=== PATIENT | male | born 1985 | race African-American/Black ===

== ENCOUNTER 2018-10-26 10:24 | Emergency (ER) | payer SELFPAY ==
[~2018-10-26] VITALS: Ht 167.6 cm; Wt 79.4 kg
[2018-10-26 10:34] VITALS: BP 150/87
[2018-10-26] MEDS ORDERED: MUPI22OI2 TP (11:20)
[2018-10-26] MEDS ORDERED: CEPH500C PO (11:20)
--- NOTE | 2018-10-26 11:21 | PHYS DOC ---
Past Medical History Past Medical History: Diabetes-Type I Past Surgical History: No Surgical History Alcohol Use: Occasionally Drug Use: Marijuana Adult General Chief Complaint Chief Complaint: THUMB HPI HPI Patient is a 32 year old AA male who since the emergency room with complaints of right thumb redness, swelling, and pain for the last 3 days. Patient denies any known injury to the thumb. He denies any recent fever, drainage from the site, numbness, or tingling. Patient states he is a type I diabetic and his blood sugars have been slightly elevated. Review of Systems Review of Systems Constitutional: Denies fever or chills [] Musculoskeletal: reports right thumb pain at proximal nailbed Integument: See HPI Neurologic: Denies focal weakness or sensory changes [] Complete systems were reviewed and found to be within normal limits, except as documented in this note. Allergies Allergies Allergies Coded Allergies Type Severity Reaction Last Updated Verified No Known Drug Allergies 10/26/18 No Physical Exam Physical Exam Constitutional: Well developed, well nourished, no acute distress, non-toxic appearance. [] HENT: Normocephalic, atraumatic, bilateral external ears normal, oropharynx moist, no oral exudates, nose normal. [] Eyes: PERRLA, EOMI, conjunctiva normal, no discharge. [] Neck: Normal range of motion, no tenderness, supple, no stridor. [] Cardiovascular:Heart rate regular rhythm, no murmur [] Lungs & Thorax: Bilateral breath sounds clear to auscultation [] Abdomen: Bowel sounds normal, soft, no tenderness, no masses, no pulsatile masses. [] Skin: Warm, dry, no erythema, no rash. [] Back: No tenderness, no CVA tenderness. [] Extremities: No tenderness, no cyanosis, no clubbing, ROM intact, no edema. [] Neurologic: Alert and oriented X 3, normal motor function, normal sensory function, no focal deficits noted. [] Psychologic: Affect normal, judgement normal, mood normal. [] Current Patient Data Vital Signs Vital Signs Date Time Temp Pulse Resp B/P (MAP) Pulse Ox O2 Delivery O2 Flow Rate FiO2 10/26/18 10:34 97.8 103 16 150/87 (108) 99 Room Air 97.8 EKG EKG [] Radiology/Procedures Radiology/Procedures R thumb paronychia was drained using an 11 blade scalpel to lift the cuticle edge. A large amount of purulent drainage was expressed. [] Course & Med Decision Making Course & Med Decision Making Pertinent Labs and Imaging studies reviewed. (See chart for details) dx: Right thumb paronychia Prescriptions written for Keflex and mupirocin. Patient encouraged to soak thumb in Epsom salts soaks 3 times a day and as needed. May take Tylenol or ibuprofen as needed for pain. Keep track of your blood sugars. Follow-up with her primary care doctor in 1-2 days for reevaluation. Return to the ER symptoms worsen. [] Staff Physician Addendum: I was working in the ER during the course of this patient's visit. I was available for consultation as needed, but I was not directly involved in the care of this patient. Dragon Disclaimer Dragon Disclaimer This electronic medical record was generated, in whole or in part, using a voice recognition dictation system. Departure Departure Impression: Primary Impression: Acute paronychia of right thumb Disposition: HOME, SELF-CARE Admitting Physician: Other Condition: STABLE Referrals: NO PCP (PCP) Patient Instructions: Paronychia, [id number] Additional Instructions: Fill prescriptions and use as directed. Soak thumb in Epsom salts soaks 3 times a day and as needed. May take Tylenol or ibuprofen as needed for pain. Keep track of your blood sugars. Follow-up with your primary care doctor in 1-2 days for reevaluation. Return to the ER symptoms worsen. Scripts Mupirocin (MUPIROCIN OINTMENT) 22 Gm Oint...g. 1 JIMMY TP TID for WOUND CARE for 7 Days, #1 TUBE 0 Refills Prov: PETER GASPAR CHUTE WORKER 10/26/18 Cephalexin (CEPHALEXIN) 500 Mg Capsule 1 CAP PO QID, #40 CAP 0 Refills Prov: PETER GASPAR CHUTE WORKER 10/26/18 PETER GASPAR APRN Oct 26, 2018 11:20 JOSE ANGEL BRADY MD Oct 26, 2018 13:59
== END 2018-10-26 11:27 | disposition home or self-care (01) ==
LOC: ER 10:24
DX: L03.011 Cellulitis of right finger (principal); E10.9 Type 1 diabetes mellitus without complications
CPT/HCPCS: 10060; 99283

== ENCOUNTER 2018-11-29 15:14 | Inpatient (IN) | payer SELFPAY ==
[~2018-11-29] VITALS: Ht 170.2 cm; Wt 77.4 kg
[~2018-11-29 15:14] MED LIST: CEPH500C PO; MUPI22OI2 TP
[2018-11-29] MEDS ORDERED: INSULIN REGULAR 100 UNIT/ML 3ML VIAL. IV ONE (16:00)
[2018-11-29] MEDS ORDERED: IV NORMAL SALINE 1000ML BAG 1,000 ML IV ONE ×2 (16:00→17:00)
[2018-11-29 16:10] LABS: BASO # 0.1 x10^3/uL (0.0-0.2); BASO % 1 % (0-3); EOS # 0.1 x10^3/uL (0.0-0.7); EOS % 1 % (0-3); HEMATOCRIT 35.6 % (39.0-53.0); HEMOGLOBIN 11.8 g/dL (13.0-17.5); LYMPH # 1.1 x10^3/uL (1.0-4.8); LYMPH % 14 % (24-48); MEAN CORPUSCULAR HEMOGLOBIN 31 pg (25-35); MEAN CORPUSCULAR HGB CONC 33 g/dL (31-37); MEAN CORPUSCULAR VOLUME 92 fL (79-100); MONO # 0.5 x10^3/uL (0.0-1.1); MONO % 6 % (0-9); NEUT # 6.2 x10^3uL (1.8-7.7); NEUT % 79 % (31-73); PLATELET COUNT 322 x10^3/uL (140-400); RED BLOOD COUNT 3.87 x10^6/uL (4.30-5.70); WHITE BLOOD COUNT 7.9 x10^3/uL (4.0-11.0)
[2018-11-29 16:11] LABS: BILIRUBIN,URINE NEGATIVE (NEG); CLARITY,URINE CLEAR; NITRITE,URINE NEGATIVE (NEG); PH,URINE 6.5; PROTEIN,URINE NEGATIVE (NEG-TRACE); UROBILINOGEN,URINE 0.2 mg/dL (0.2 mg/dL)
[2018-11-29 16:25] LABS: COLOR,URINE STRAW
[2018-11-29 16:28] LABS: BACTERIA,URINE 0 /HPF (0-FEW); WBC,URINE 0 /HPF (0-4)
[2018-11-29 16:33] LABS: ALBUMIN 3.1 g/dL (3.4-5.0); ALBUMIN/GLOBULIN RATIO 0.8 (1.0-1.7); CREATININE 1.4 mg/dL (0.7-1.3); GFR 71.5; POTASSIUM 5.1 mmol/L (3.5-5.1); TOTAL BILIRUBIN 0.9 mg/dL (0.2-1.0); TOTAL PROTEIN 6.9 g/dL (6.4-8.2)
[2018-11-29] MEDS ORDERED: INSULIN REGULAR VIAL 150 UNIT in 0.9 % SODIUM CHLORIDE 150ML 150 ML IV PRN ×2 (17:15→18:15)
[2018-11-29] MEDS ORDERED: DEXTROSE 50% 25 GM / 50ML DISP.SYRIN. IV PRN ×2 (17:15→21:30)
[2018-11-29] MEDS ORDERED: INSULIN,REGULAR 150 UNIT DRIP 150 ML IV ONE (17:30)
[2018-11-29] MEDS ORDERED: IV 1/2 NORMAL SALINE 1,000 ML IV SCH (18:09)
[2018-11-29] MEDS ORDERED: IV NORMAL SALINE 1000ML BAG 1,000 ML IV SCH ×2 (18:09→19:15)
[2018-11-29] MEDS ORDERED: IV DEXTROSE 5 %-0.45 % NACL 1,000 ML IV SCH (18:09)
[2018-11-29] MEDS ORDERED: POTASSIUM CHLORIDE 10MEQ 100 ML IV PRN ×2 (18:15)
--- NOTE | 2018-11-29 18:16 | PHYS DOC ---
Past Medical History Past Medical History: Asthma, Diabetes-Type I Additional Past Medical Histor: gastroparesis Past Surgical History: No Surgical History Alcohol Use: Occasionally Drug Use: Marijuana Adult General Chief Complaint Chief Complaint: OTHER COMPLAINTS HPI HPI Patient is a 32 year old AA male who presents to the emergency room with complaints of being out of his diabetes medications, regular insulin and Lantus , for the last 3 days. Patient states he is unable to afford his medications. He also complains of sharp, tight pain in both of his feet for the last several weeks, he denies any known injury. He denies any redness, swelling, or warmth of his lower extremities. He states that the pain in his right lower extremity is worse than his left lower extremity, he rates the pain as 7 or 8 out of 10. Patient denies any abdominal pain, nausea, vomiting, diarrhea, fever, chest pain , cough, or shortness of breath. He reports that he is a type I diabetic with a history of gastroparesis and asthma. He denies any tobacco use, states that he smokes marijuana about 2 times per week, and he only drinks alcohol on holidays. Review of Systems Review of Systems Constitutional: Denies fever or chills [] Eyes: Denies change in visual acuity, redness, or eye pain [] HENT: Denies nasal congestion or sore throat [] Respiratory: Denies cough or shortness of breath [] Cardiovascular: No additional information not addressed in HPI [] GI: Denies abdominal pain, nausea, vomiting, or diarrhea [] : Denies dysuria or hematuria [] Musculoskeletal: Denies back pain; see history of present illness Integument: Denies rash or skin lesions [] Neurologic: Denies headache, focal weakness or sensory changes [] Endocrine: See history of present illness[] All other systems were reviewed and found to be within normal limits, except as documented in this note. Current Medications Current Medications Current Medications Medications (Trade) Dose Ordered Sig/Alexander Start Time Stop Time Status Last Admin Dose Admin Dextrose (Dextrose 50%-Water Syringe) 12.5 gm PRN Q15MIN PRN 11/29/18 17:15 Insulin Human Regular (HumuLIN R VIAL) 10 unit 1X ONCE 11/29/18 16:00 11/29/18 16:02 DC 11/29/18 16:13 10 UNIT Insulin Human Regular 150 unit/ Sodium Chloride 151.5 ml @ 0 mls/hr CONT PRN 11/29/18 17:15 Sodium Chloride 1,000 ml @ 1,000 mls/hr 1X ONCE 11/29/18 17:00 11/29/18 17:59 DC 11/29/18 17:02 1,000 MLS/HR Allergies Allergies Allergies Coded Allergies Type Severity Reaction Last Updated Verified No Known Drug Allergies 10/26/18 No Physical Exam Physical Exam Constitutional: Well developed, well nourished, no acute distress, non-toxic appearance. [] HENT: Normocephalic, atraumatic, bilateral external ears normal, dry mucous membranes noted, no oral exudates, nose normal. [] Eyes: PERRLA, conjunctiva normal, no discharge. [] Neck: Normal range of motion, no tenderness, supple, no stridor. [] Cardiovascular:Heart rate regular rhythm, no murmur [] Lungs & Thorax: Bilateral breath sounds clear to auscultation [] Skin: Warm, dry, no erythema, no rash; no ulcerations noted of bilateral lower extremities. [] Extremities: No tenderness, no cyanosis, no erythema, no warmth, no clubbing, ROM intact, no edema. [] Neurologic: Alert and oriented X 3, normal motor function, normal sensory function, no focal deficits noted. [] Psychologic: Affect normal, judgement normal, mood normal. [] Current Patient Data Vital Signs Vital Signs Date Time Temp Pulse Resp B/P (MAP) Pulse Ox O2 Delivery O2 Flow Rate FiO2 11/29/18 17:10 132/67 (88) Room Air 11/29/18 16:40 100 97 11/29/18 15:25 97.9 18 97.9 Lab Values Laboratory Tests Test 11/29/18 15:50 White Blood Count 7.9 x10^3/uL (4.0-11.0) Red Blood Count 3.87 x10^6/uL (4.30-5.70) L Hemoglobin 11.8 g/dL (13.0-17.5) L Hematocrit 35.6 % (39.0-53.0) L Mean Corpuscular Volume 92 fL (79-100) Mean Corpuscular Hemoglobin 31 pg (25-35) Mean Corpuscular Hemoglobin Concent 33 g/dL (31-37) Red Cell Distribution Width 14.0 % (11.5-14.5) Platelet Count 322 x10^3/uL (140-400) Neutrophils (%) (Auto) 79 % (31-73) H Lymphocytes (%) (Auto) 14 % (24-48) L Monocytes (%) (Auto) 6 % (0-9) Eosinophils (%) (Auto) 1 % (0-3) Basophils (%) (Auto) 1 % (0-3) Neutrophils # (Auto) 6.2 x10^3uL (1.8-7.7) Lymphocytes # (Auto) 1.1 x10^3/uL (1.0-4.8) Monocytes # (Auto) 0.5 x10^3/uL (0.0-1.1) Eosinophils # (Auto) 0.1 x10^3/uL (0.0-0.7) Basophils # (Auto) 0.1 x10^3/uL (0.0-0.2) Urine Collection Type Void Urine Color Straw Urine Clarity Clear Urine pH 6.5 Urine Specific [place] >=1.030 Urine Protein Negative mg/dL (NEG-TRACE) Urine Glucose (UA) >=1000 mg/dL (NEG) Urine Ketones (Stick) 15 mg/dL (NEG) Urine Blood Negative (NEG) Urine Nitrite Negative (NEG) Urine Bilirubin Negative (NEG) Urine Urobilinogen Dipstick 0.2 mg/dL (0.2 mg/dL) Urine Leukocyte Esterase Negative (NEG) Urine RBC 1-2 /HPF (0-2) Urine WBC 0 /HPF (0-4) Urine Squamous Epithelial Cells None /LPF Urine Bacteria 0 /HPF (0-FEW) Sodium Level 125 mmol/L (136-145) L Potassium Level 5.1 mmol/L (3.5-5.1) Chloride Level 89 mmol/L (98-107) L Carbon Dioxide Level 24 mmol/L (21-32) Anion Gap 12 (6-14) Blood Urea Nitrogen 17 mg/dL (8-26) Creatinine 1.4 mg/dL (0.7-1.3) H Estimated GFR (Cockcroft-Gault) 71.5 BUN/Creatinine Ratio 12 (6-20) Glucose Level 871 mg/dL (70-99) *H Calcium Level 9.0 mg/dL (8.5-10.1) Total Bilirubin 0.9 mg/dL (0.2-1.0) Aspartate Amino Transferase (AST) 18 U/L (15-37) Alanine Aminotransferase (ALT) 22 U/L (16-63) Alkaline Phosphatase 111 U/L (46-116) Total Protein 6.9 g/dL (6.4-8.2) Albumin 3.1 g/dL (3.4-5.0) L Albumin/Globulin Ratio 0.8 (1.0-1.7) L Lipase 251 U/L (73-393) Laboratory Tests 11/29/18 15:50 Laboratory Tests 11/29/18 15:50 EKG EKG [] Radiology/Procedures Radiology/Procedures [] Course & Med Decision Making Course & Med Decision Making Pertinent Labs and Imaging studies reviewed. (See chart for details) dx: Diabetic hyperosmolar nonketotic state; hyperglycemia without ketosis Patient was given 2 L of normal saline and 10 units of regular insulin IV in the department. 45 minutes after insulin and after 1 L of normal saline his blood sugar remained greater than 600. Patient's corrected sodium is 137, chloride 89, creatinine 1.4, K 5.1, blood glucose 871, BC 3.87, hemoglobin 11.8 , hematocrit 35.6, urine is positive for 15 ketones and greater than 1000 glucose. 1715- Dr. Baca was contacted and the decision to admit the patient and initiate an insulin drip was made. Patient to be admitted to the ICU. [] Dragon Disclaimer Dragon Disclaimer This electronic medical record was generated, in whole or in part, using a voice recognition dictation system. Departure Departure Impression: Primary Impression: Diabetic hyperosmolar non-ketotic state Additional Impression: Hyperglycemia without ketosis Disposition: ADMITTED INPATIENT Admitting Physician: Joseph Isaacs Condition: STABLE Referrals: NO PCP (PCP) Problem Qualifiers PETER GASPAR PLASTIC PARTS FABRICATOR Nov 29, 2018 18:15
[2018-11-29 18:34] LABS: CALCIUM 8.8 mg/dL (8.5-10.1); CREATININE 1.5 mg/dL (0.7-1.3); POTASSIUM 3.7 mmol/L (3.5-5.1)
[2018-11-29 18:36] LABS: MAGNESIUM 1.9 mg/dL (1.8-2.4); PHOSPHORUS 2.4 mg/dL (2.6-4.7)
[2018-11-29 18:42] VITALS: BP 133/90
--- NOTE | 2018-11-29 19:00 | NUR ---
Patient arrived to ICU room prior to this RN's arrival--patient already settled by shift change. Patient complaining of cramping pain 05/24, A&Ox4, SR on the monitor, RA. Urinal placed at bedside and blood sugar taken. Patient is tearful at this time. Oriented to unit routines, bed controls, tv controls, call light, diet (NPO), and activity (bedrest). Will continue to monitor.
--- NOTE | 2018-11-29 19:28 | PDOC1 ---
History and Physical Date of Admission Date of Admission DATE: 11/29/18 TIME: 19:26 Identification/Chief Complaint Chief Complaint presented to the emergency room with complaints of being out of his diabetes medications, regular insulin and Lantus, for the last 3 days, unable to afford his medications. He also complains of sharp, tight pain in both of his feet for the last several weeks, he denies any known injury. notes inc thirst He denies any redness, swelling, or warmth of his lower extremities. He states that the pain in his right lower extremity is worse than his left lower extremity, he rates the pain as 7 or 8 out of 10. Patient denies any abdominal pain, nausea, vomiting Past Medical History Past Medical History Past Medical History Past Medical History: Asthma, Diabetes-Type I Additional Past Medical Histor: gastroparesis Past Surgical History: No Surgical History Alcohol Use: Occasionally Drug Use: Marijuana denies alcohol use family hx diabetes, htn Hepatobiliary: No pertinent hx ENT: No pertinent hx Renal/: No pertinent hx Past Surgical History Past Surgical History: No pertinent history Family History Family History: Hypertension Social History Smoke: No ALCOHOL: occassional Drugs: Marijuana Current Problem List Problem List Problems Medical Problems: (1) Diabetic hyperosmolar non-ketotic state Status: Acute (2) Hyperglycemia without ketosis Status: Acute Current Medications Current Medications Current Medications Sodium Chloride 1,000 ml @ 1,000 mls/hr 1X ONCE IV Last administered on at 16:12; Start 11/29/18 at 16:00; Stop 11/29/18 at 16:59; Status DC Insulin Human Regular (HumuLIN R VIAL) 10 unit 1X ONCE IV Last administered on 11/29/18at 16:13; Start 11/29/18 at 16:00; Stop 11/29/18 at 16:02; Status DC Sodium Chloride 1,000 ml @ 1,000 mls/hr 1X ONCE IV Last administered on at 17:02; Start 11/29/18 at 17:00; Stop 11/29/18 at 17:59; Status DC Insulin Human Regular 150 unit/ Sodium Chloride 151.5 ml @ 0 mls/hr CONT PRN IV SEE I/O RECORD; Start 11/29/18 at 17:15 Dextrose (Dextrose 50%-Water Syringe) 12.5 gm PRN Q15MIN PRN IV LOW BLOOD SUGAR ; Start 11/29/18 at 17:15 Insulin Human Regular 150 ml @ 0 mls/hr 1X ONCE IV Last administered on at 17:58; Start 11/29/18 at 17:30; Stop 11/29/18 at 17:31; Status DC Sodium Chloride 1,000 ml @ 250 mls/hr Q4H IV Last administered on 11/29/18at 19 :11; Start 11/29/18 at 18:09 Sodium Chloride 1,000 ml @ 250 mls/hr Q4H IV ; Start 11/29/18 at 18:09; Status Cancel Dextrose/Sodium Chloride 1,000 ml @ 250 mls/hr Q4H IV ; Start 11/29/18 at 18:09 ; Status Cancel Insulin Human Regular 150 unit/ Sodium Chloride 151.5 ml @ 0 mls/hr CONT PRN PRN IV PER PROTOCOL; Start 11/29/18 at 18:15 Potassium Chloride/Water 100 ml @ 100 mls/hr PRN Q1HR PRN IV SEE COMMENTS; Start 11/29/18 at 18:15 Potassium Chloride/Water 100 ml @ 100 mls/hr PRN Q1HR PRN IV SEE COMMENTS; Start 11/29/18 at 18:15 Potassium Chloride/Water 100 ml @ 100 mls/hr PRN Q1HR PRN IV SEE COMMENTS; Start 11/29/18 at 18:15 Sodium Chloride 1,000 ml @ 250 mls/hr Q4H IV ; Start 11/29/18 at 19:15; Stop at 19:15; Status DC Active Scripts Active Mupirocin Ointment (Mupirocin) 22 Gm Oint...g. 1 Lane TP TID 7 Days Cephalexin 500 Mg Capsule 1 Cap PO QID Allergies Allergies: Coded Allergies: No Known Drug Allergies (Unverified , 10/26/18) ROS Review of System Review of Systems Review of Systems Constitutional: Denies fever or chills [] Eyes: Denies change in visual acuity, redness, or eye pain [] HENT: Denies nasal congestion or sore throat [] Respiratory: Denies cough or shortness of breath [] Cardiovascular: No additional information not addressed in HPI [] GI: Denies abdominal pain, nausea, vomiting, or diarrhea [] : Denies dysuria or hematuria [] notes polyuria Musculoskeletal: Denies back pain; see history of present illness Integument: Denies rash or skin lesions [] Neurologic: Denies headache, focal weakness or sensory changes [] Endocrine: See history of present illness[] 14 pt systems were reviewed and found to be within normal limits, except as documented General: YES: Fatigue, Malaise ALLERGY AND IMMUNOLOGY: No: Hives, Insect Bite Sensitivity, Itchy/Watery Eyes, Nasal Congestion, Post Nasal Drip, Seasonal Allergies, Other Hematological and Lymphatic: No: Bleeding Problems, Blood Clots, Blood Transfusions, Brusing, Night Sweats, Pallor, Swollen Lymph Nodes, Other Breast: No New/Changing Breast Lumps, No Nipple changes, No Nipple discharge, No Other Respiratory: No: Cough, Hemoptysis, Orthopnea, Pleuritic Pain, Shortness of breath, SOB with excertion, Sputum Changes, Stridor, Tachypnea, Wheezing, Other Cardiovascular: No Chest Pain, No Palpitations, No Orthopnea, No Paroxysmal Noc. Dyspnea, No Edema, No Lt Headedness, No Other Gastrointestinal: Yes Nausea Genitourinary: YES Frequency, YES Urgency Musculoskeletal: Yes Muscular Weakness Neurological: Yes Numbness/Tingling Skin: Yes Dry Skin Physical Exam Physical Exam Physical Exam Physical Exam Constitutional: Well developed, well nourished, no acute distress, non-toxic appearance. [] HENT: Normocephalic, atraumatic, bilateral external ears normal, dry mucous membranes noted, no oral exudates, nose normal. [] Eyes: PERRLA, conjunctiva normal, no discharge. [] Neck: Normal range of motion, no tenderness, supple, no stridor. [] Cardiovascular:Heart rate regular rhythm, no murmur [] Lungs & Thorax: Bilateral breath sounds clear to auscultation [] Skin: Warm, dry, no erythema, no rash; no ulcerations noted of bilateral lower extremities. [] Extremities: No tenderness, no cyanosis, no erythema, no warmth, no clubbing, ROM intact, no edema. [] Neurologic: Alert and oriented X 3, normal motor function, normal sensory function, no focal deficits noted. [] Psychologic: Affect normal, judgement normal, mood normal. [] General: Alert, Oriented X3, Cooperative, mild distress HEENT: Atraumatic, PERRLA, EOMI Lungs: Clear to auscultation, Normal air movement Heart: S1S2, RRR, no gallops Cardiovascular: S1 Breasts: Not examined Abdomen: Normal bowel sounds, Soft, No tenderness Rectal Exam: not examined PELVIC: Examination not indicated Extremities: No cyanosis, No edema Skin: No breakdown Neuro: Normal speech, Sensation intact, Cranial nerves 3-12 NL Psych/Mental Status: Mental status NL, Mood NL Vitals Vitals Vital Signs Date Time Temp Pulse Resp B/P (MAP) Pulse Ox O2 Delivery O2 Flow Rate FiO2 11/29/18 18:42 98.5 92 20 133/90 (104) 100 Room Air 98.5 Labs Labs Laboratory Tests Test 11/29/18 15:50 11/29/18 18:20 White Blood Count 7.9 x10^3/uL (4.0-11.0) Red Blood Count 3.87 x10^6/uL (4.30-5.70) Hemoglobin 11.8 g/dL (13.0-17.5) Hematocrit 35.6 % (39.0-53.0) Mean Corpuscular Volume 92 fL (79-100) Mean Corpuscular Hemoglobin 31 pg (25-35) Mean Corpuscular Hemoglobin Concent 33 g/dL (31-37) Red Cell Distribution Width 14.0 % (11.5-14.5) Platelet Count 322 x10^3/uL (140-400) Neutrophils (%) (Auto) 79 % (31-73) Lymphocytes (%) (Auto) 14 % (24-48) Monocytes (%) (Auto) 6 % (0-9) Eosinophils (%) (Auto) 1 % (0-3) Basophils (%) (Auto) 1 % (0-3) Neutrophils # (Auto) 6.2 x10^3uL (1.8-7.7) Lymphocytes # (Auto) 1.1 x10^3/uL (1.0-4.8) Monocytes # (Auto) 0.5 x10^3/uL (0.0-1.1) Eosinophils # (Auto) 0.1 x10^3/uL (0.0-0.7) Basophils # (Auto) 0.1 x10^3/uL (0.0-0.2) Urine Collection Type Void Urine Color Straw Urine Clarity Clear Urine pH 6.5 Urine Specific [place] >=1.030 Urine Protein Negative mg/dL (NEG-TRACE) Urine Glucose (UA) >=1000 mg/dL (NEG) Urine Ketones (Stick) 15 mg/dL (NEG) Urine Blood Negative (NEG) Urine Nitrite Negative (NEG) Urine Bilirubin Negative (NEG) Urine Urobilinogen Dipstick 0.2 mg/dL (0.2 mg/dL) Urine Leukocyte Esterase Negative (NEG) Urine RBC 1-2 /HPF (0-2) Urine WBC 0 /HPF (0-4) Urine Squamous Epithelial Cells None /LPF Urine Bacteria 0 /HPF (0-FEW) Sodium Level 125 mmol/L (136-145) 134 mmol/L (136-145) Potassium Level 5.1 mmol/L (3.5-5.1) 3.7 mmol/L (3.5-5.1) Chloride Level 89 mmol/L (98-107) 98 mmol/L (98-107) Carbon Dioxide Level 24 mmol/L (21-32) 26 mmol/L (21-32) Anion Gap 12 (6-14) 10 (6-14) Blood Urea Nitrogen 17 mg/dL (8-26) 16 mg/dL (8-26) Creatinine 1.4 mg/dL (0.7-1.3) 1.5 mg/dL (0.7-1.3) Estimated GFR (Cockcroft-Gault) 71.5 66.0 BUN/Creatinine Ratio 12 (6-20) Glucose Level 871 mg/dL (70-99) 462 mg/dL (70-99) Calcium Level 9.0 mg/dL (8.5-10.1) 8.8 mg/dL (8.5-10.1) Total Bilirubin 0.9 mg/dL (0.2-1.0) Aspartate Amino Transf (AST/SGOT) 18 U/L (15-37) Alanine Aminotransferase (ALT/SGPT) 22 U/L (16-63) Alkaline Phosphatase 111 U/L (46-116) Total Protein 6.9 g/dL (6.4-8.2) Albumin 3.1 g/dL (3.4-5.0) Albumin/Globulin Ratio 0.8 (1.0-1.7) Lipase 251 U/L (73-393) Phosphorus Level 2.4 mg/dL (2.6-4.7) Magnesium Level 1.9 mg/dL (1.8-2.4) Laboratory Tests Test 11/29/18 15:50 11/29/18 18:20 White Blood Count 7.9 x10^3/uL (4.0-11.0) Red Blood Count 3.87 x10^6/uL (4.30-5.70) Hemoglobin 11.8 g/dL (13.0-17.5) Hematocrit 35.6 % (39.0-53.0) Mean Corpuscular Volume 92 fL (79-100) Mean Corpuscular Hemoglobin 31 pg (25-35) Mean Corpuscular Hemoglobin Concent 33 g/dL (31-37) Red Cell Distribution Width 14.0 % (11.5-14.5) Platelet Count 322 x10^3/uL (140-400) Neutrophils (%) (Auto) 79 % (31-73) Lymphocytes (%) (Auto) 14 % (24-48) Monocytes (%) (Auto) 6 % (0-9) Eosinophils (%) (Auto) 1 % (0-3) Basophils (%) (Auto) 1 % (0-3) Neutrophils # (Auto) 6.2 x10^3uL (1.8-7.7) Lymphocytes # (Auto) 1.1 x10^3/uL (1.0-4.8) Monocytes # (Auto) 0.5 x10^3/uL (0.0-1.1) Eosinophils # (Auto) 0.1 x10^3/uL (0.0-0.7) Basophils # (Auto) 0.1 x10^3/uL (0.0-0.2) Urine Collection Type Void Urine Color Straw Urine Clarity Clear Urine pH 6.5 Urine Specific [place] >=1.030 Urine Protein Negative mg/dL (NEG-TRACE) Urine Glucose (UA) >=1000 mg/dL (NEG) Urine Ketones (Stick) 15 mg/dL (NEG) Urine Blood Negative (NEG) Urine Nitrite Negative (NEG) Urine Bilirubin Negative (NEG) Urine Urobilinogen Dipstick 0.2 mg/dL (0.2 mg/dL) Urine Leukocyte Esterase Negative (NEG) Urine RBC 1-2 /HPF (0-2) Urine WBC 0 /HPF (0-4) Urine Squamous Epithelial Cells None /LPF Urine Bacteria 0 /HPF (0-FEW) Sodium Level 125 mmol/L (136-145) 134 mmol/L (136-145) Potassium Level 5.1 mmol/L (3.5-5.1) 3.7 mmol/L (3.5-5.1) Chloride Level 89 mmol/L (98-107) 98 mmol/L (98-107) Carbon Dioxide Level 24 mmol/L (21-32) 26 mmol/L (21-32) Anion Gap 12 (6-14) 10 (6-14) Blood Urea Nitrogen 17 mg/dL (8-26) 16 mg/dL (8-26) Creatinine 1.4 mg/dL (0.7-1.3) 1.5 mg/dL (0.7-1.3) Estimated GFR (Cockcroft-Gault) 71.5 66.0 BUN/Creatinine Ratio 12 (6-20) Glucose Level 871 mg/dL (70-99) 462 mg/dL (70-99) Calcium Level 9.0 mg/dL (8.5-10.1) 8.8 mg/dL (8.5-10.1) Total Bilirubin 0.9 mg/dL (0.2-1.0) Aspartate Amino Transf (AST/SGOT) 18 U/L (15-37) Alanine Aminotransferase (ALT/SGPT) 22 U/L (16-63) Alkaline Phosphatase 111 U/L (46-116) Total Protein 6.9 g/dL (6.4-8.2) Albumin 3.1 g/dL (3.4-5.0) Albumin/Globulin Ratio 0.8 (1.0-1.7) Lipase 251 U/L (73-393) Phosphorus Level 2.4 mg/dL (2.6-4.7) Magnesium Level 1.9 mg/dL (1.8-2.4) VTE Prophylaxis Ordered VTE Prophylaxis Devices: Yes VTE Pharmacological Prophylaxi: Yes Assessment/Plan Assessment/Plan impression 1. hyperosmolar hyperglycemia 2. hx IDDM 3. NONCOMPLIANCE OF MEDS due to cost 4. dehydration, volume depletion 5. pseudohyponatremia plan icu bed insulin drip protocol SS consult am labs home meds when stable iv fluid support dvt prophylaxis 110 min cc time TRENT RAMIREZ MD Nov 29, 2018 19:28
[2018-11-29 20:00] VITALS: BP 139/98
--- NOTE | 2018-11-29 20:00 | NUR ---
Patient states he does not have his medication list with him. He knows he takes Reglan and Insulin, but does not know about doses or frequencies. Patient asked if he has family that can bring up the prescriptions or a medication list and he said his family does not have the transportation to come to the hospital. Will attempt to call pharmacy in AM.
[2018-11-29] MEDS: POTASSIUM CHLORIDE 10MEQ 100 ML IV PRN ×2 (20:26→21:38)
--- NOTE | 2018-11-29 20:28 | NUR ---
Reassessment of IVF not completed by ED RN--marked as "not done" by this RN. Multiple attempts to get 2nd IV access by this RN, credit charge authorizer, and METAL MILLING MACHINE OPERATOR--all unsuccessful.
[2018-11-29 21:00] VITALS: BP 147/70
[2018-11-29] MEDS ORDERED: ENOXAPARIN 40 MG/0.4 ML SYRINGE. SQ SCH (21:00)
[2018-11-29] MEDS ORDERED: fentaNYL PF VIAL 100 MCG/2 ML VIAL IV PRN (21:30)
[2018-11-29] MEDS ORDERED: LORazepam 1 MG TABLET PO PRN (21:30)
--- NOTE | 2018-11-29 21:30 | NUR ---
Patient states that "this is too much" and that he wants to leave AMA. Patient extremely anxious, uncooperative, and agitated at this time. Charge nurse alerted of patient wishes--charge nurse talked with patient and patient agreed to stay if he could have food/drink, pain meds, and anxiety meds. Patient's blood sugar was low, 1/2 amp of D50 given, and is stable now. Dr. Baca notified of patient's wishes--orders received to stop DKA protocol, start NS at 125 cc/hr, give Ativan 1 mg PO Q8 PRN for anxiety, give Fentanyl 50 mcg Q4H IV for pain, start clear liquid diet, moderate sliding scale insulin, and give 10 units of Lantus tonight. Patient is content with these orders and is willing to stay.
[2018-11-29] MEDS ORDERED: INSULIN GLARGINE 300 UNITS/3 ML INSULN.PEN. SQ ONE (21:45)
[2018-11-29 22:00] VITALS: BP 147/70
[2018-11-29] MEDS ORDERED: POTASSIUM CHLORIDE 10 MEQ TABLET.ER. PO ONE (22:00)
[2018-11-29 23:00] VITALS: BP 121/85
[2018-11-30] VITALS (12 sets, daily range): BP systolic 117–154; BP diastolic 65–93
[2018-11-30] MEDS: IV NORMAL SALINE 1000ML BAG 1,000 ML IV SCH ×2 (00:26→08:39)
[2018-11-30] MEDS: INSULIN LISPRO 300 UNITS/3 ML INSULN.PEN. SQ SCH ×3 (00:37→12:27)
[2018-11-30 05:38] LABS: BASO # 0.1 x10^3/uL (0.0-0.2); BASO % 1 % (0-3); EOS # 0.3 x10^3/uL (0.0-0.7); EOS % 4 % (0-3); HEMATOCRIT 37.5 % (39.0-53.0); HEMOGLOBIN 12.6 g/dL (13.0-17.5); LYMPH # 1.9 x10^3/uL (1.0-4.8); LYMPH % 24 % (24-48); MEAN CORPUSCULAR HEMOGLOBIN 30 pg (25-35); MEAN CORPUSCULAR HGB CONC 34 g/dL (31-37); MEAN CORPUSCULAR VOLUME 90 fL (79-100); MONO # 0.7 x10^3/uL (0.0-1.1); MONO % 9 % (0-9); NEUT % 62 % (31-73); PLATELET COUNT 368 x10^3/uL (140-400); RED BLOOD COUNT 4.17 x10^6/uL (4.30-5.70); RED CELL DISTRIBUTION WIDTH 14.2 % (11.5-14.5); WHITE BLOOD COUNT 8.1 x10^3/uL (4.0-11.0)
[2018-11-30 05:44] LABS: CALCIUM 8.5 mg/dL (8.5-10.1); GFR 105.5; POTASSIUM 4.2 mmol/L (3.5-5.1)
[2018-11-30] MEDS ORDERED: INSULIN LISPRO 300 UNITS/3 ML INSULN.PEN. SQ SCH ×2 (08:00→11:30)
[2018-11-30] MEDS ORDERED: INSU100I11 SQ (10:13)
[2018-11-30] MEDS ORDERED: GABA-585 PO (10:13)
[2018-11-30] MEDS ORDERED: INSU100I13 SQ (10:13)
--- NOTE | 2018-11-30 12:45 | PDOC3 ---
Discharge Summary [facility] Date of Admission: Nov 29, 2018 Discharge Date: Nov 30, 2018 Admitting Diagnosis uncontrolled dm1, no DKA or HHS non compliance wo insurance h/o drug use with marijuana pt denies tho ALONSO bl ext pain, neuropathy likely Final Diagnosis Brief Hospital Course Mr. Deng is a 32 old M, dm1 since 18yo, just moved from [place], came for fatigue and high glucose. He said he cannot afford insulin for 3ds, and no PCP, noticed worse fatigue recently, and glucose was high at home. no headache, confusion, sob, or chest pain. c/o bl leg and hands pain sometimes, glucose usually 200s at home. pt admited in ICU with insulin drip, no gap, no DKA, off drip last night, eats ok, glucose ok. pt wants to go home now, ok to dc, told nurse to give him free insulin clinic info. dc time 35min. gabapentin started. HEENT: Atraumatic, PERRLA, EOMI Lungs: Clear to auscultation, Normal air movement Heart: S1S2, RRR, no gallops Cardiovascular: S1 Breasts: Not examined Abdomen: Normal bowel sounds, Soft, No tenderness Rectal Exam: not examined PELVIC: Examination not indicated Extremities: No cyanosis, No edema Skin: No breakdown Neuro: Normal speech, Sensation intact, Cranial nerves 3-12 NL Psych/Mental Status: Mental status NL, Mood NL Disposition home CONDITION AT DISCHARGE: Improved Scheduled Gabapentin (Gabapentin ), 100 MG PO TID Insulin Glargine,Hum.rec.anlog (Lantus Solostar), 30 UNITS SQ QHS Insulin Lispro (Humalog), 10 UNITS SQ TIDAC Mupirocin (Mupirocin Ointment), 1 JIMMY TP TID Discontinued Medications Cephalexin (Cephalexin), 1 CAP PO QID EVIE ARTEAGA MD Nov 30, 2018 12:45
--- NOTE | 2018-11-30 13:21 | NUR ---
Patient d/c from hospital at 1315. Patient's sister came and picked him up using her vehicle. Blood sugar was 173 prior to d/c. Insulin given according to sliding scale. All written prescriptions (insulin, gabapentin) given to patient. d/c paperwork signed. PIV removed. RN explained to patient that he should establish PCP in [place] area since he is new to the area. Information given to patient diabetes clinic with low cost/free supplies.
[2018-11-30] MEDS ORDERED: GABAPENTIN 100 MG CAPSULE. PO SCH (14:00)
[2018-11-30] MEDS ORDERED: INSULIN GLARGINE 300 UNITS/3 ML INSULN.PEN. SQ SCH (21:00)
== END 2018-11-30 13:15 | disposition home or self-care (01) | DRG 638 ==
LOC: ER 15:14 → 1 WEST ICU 17:15
PROVIDERS: ADMIT Family Medicine; ATTEND Family Medicine
DX: E11.00 Type 2 diabetes mellitus with hyperosmolarity without nonketotic hyperglycemic-hyperosmolar coma (NKHHC) (principal); N17.9 Acute kidney failure, unspecified; E86.0 Dehydration; J45.909 Unspecified asthma, uncomplicated; K31.84 Gastroparesis; E11.65 Type 2 diabetes mellitus with hyperglycemia; F12.90 Cannabis use, unspecified, uncomplicated; E11.43 Type 2 diabetes mellitus with diabetic autonomic (poly)neuropathy; Z83.3 Family history of diabetes mellitus; Z82.49 Family history of ischemic heart disease and other diseases of the circulatory system; Z79.4 Long term (current) use of insulin; Z91.19 Patient's noncompliance with other medical treatment and regimen
CPT/HCPCS: 36415; 80048; 80053; 81001; 82962; 83690; 83735; 84100; 85025; 87641; 96361; 96374; J1650; J1815; J3010; J3480; J7030; J7042; 99285-25; G0378

== ENCOUNTER 2019-01-26 16:48 | Emergency (ER) | payer SELFPAY ==
[~2019-01-26] VITALS: Ht 170.2 cm; Wt 77.1 kg
[~2019-01-26 16:48] MED LIST changes: +GABA-585 PO; +INSU100I11 SQ; +INSU100I13 SQ
[2019-01-26] MEDS ORDERED: HALOPERIDOL LACTATE 5 MG/ML VIAL. IVP ONE (17:45)
[2019-01-26] MEDS ORDERED: FAMOTIDINE 20 MG/2 ML VIAL IVP ONE (17:45)
[2019-01-26] MEDS ORDERED: ONDANSETRON PF 4 MG/2 ML VIAL. IV ONE (17:45)
[2019-01-26] MEDS ORDERED: IV NORMAL SALINE 1000ML BAG 1,000 ML IV ONE ×2 (17:45)
[2019-01-26 18:22] LABS: BILIRUBIN,URINE NEGATIVE (NEG); CLARITY,URINE CLEAR; COLOR,URINE YELLOW; NITRITE,URINE NEGATIVE (NEG); PH,URINE 8.5; PROTEIN,URINE 30 mg/dL (NEG-TRACE); UROBILINOGEN,URINE 0.2 mg/dL (0.2 mg/dL)
[2019-01-26 18:28] LABS: BARBITURATES NEG (NEG); BENZODIAZEPINES NEG (NEG); CANNABINOIDS POS (NEG); COCAINE POS (NEG); METHADONE NEG (NEG); OPIATES NEG (NEG); PHENCYCLIDINE NEG (NEG)
[2019-01-26 18:30] LABS: AMPHETAMINE/METHAMPHETAMINE NEG (NEG)
[2019-01-26 18:33] LABS: BACTERIA,URINE 0 /HPF (0-FEW); SQUAMOUS EPITHELIAL CELL,UR OCC /LPF; WBC,URINE RARE /HPF (0-4)
[2019-01-26 18:41] LABS: BASO # 0.1 x10^3/uL (0.0-0.2); BASO % 1 % (0-3); EOS % 0 % (0-3); HEMATOCRIT 36.6 % (39.0-53.0); HEMOGLOBIN 12.4 g/dL (13.0-17.5); LYMPH # 0.8 x10^3/uL (1.0-4.8); LYMPH % 8 % (24-48); MEAN CORPUSCULAR HEMOGLOBIN 30 pg (25-35); MEAN CORPUSCULAR HGB CONC 34 g/dL (31-37); MEAN CORPUSCULAR VOLUME 90 fL (79-100); MONO # 0.4 x10^3/uL (0.0-1.1); MONO % 4 % (0-9); NEUT # 8.7 x10^3uL (1.8-7.7); NEUT % 87 % (31-73); PLATELET COUNT 381 x10^3/uL (140-400); RED BLOOD COUNT 4.08 x10^6/uL (4.30-5.70); RED CELL DISTRIBUTION WIDTH 13.8 % (11.5-14.5)
[2019-01-26 18:53] LABS: CALCIUM 9.6 mg/dL (8.5-10.1); CREATININE 1.4 mg/dL (0.7-1.3); GFR 71.1; POTASSIUM 3.5 mmol/L (3.5-5.1)
[2019-01-26 18:59] LABS: % LYMPHS 4 % (24-48); % MONOS 2 % (0-10); % SEGS 94 % (35-66)
[2019-01-26 19:00] LABS: PLT ESTIMATE ADEQUATE (ADEQUATE)
[2019-01-26] MEDS ORDERED: INSULIN REGULAR 100 UNIT/ML 3ML VIAL. IV ONE (19:00)
[2019-01-26 19:01] LABS: ALBUMIN 3.5 g/dL (3.4-5.0); ALBUMIN/GLOBULIN RATIO 0.9 (1.0-1.7); TOTAL BILIRUBIN 0.8 mg/dL (0.2-1.0); TOTAL PROTEIN 7.5 g/dL (6.4-8.2)
--- NOTE | 2019-01-26 20:37 | PHYS DOC ---
Past Medical History Past Medical History: Anxiety, Asthma, Diabetes-Type I, Hypertension, Other Additional Past Medical Histor: gastroparesis Past Surgical History: No Surgical History Alcohol Use: Occasionally Drug Use: Marijuana Adult General Chief Complaint Chief Complaint: BLOOD SUGAR PROBLEM HPI HPI Patient is a 33 year old male with history of diabetes type 1, hypertension, gastroparesis, anxiety and asthma who presents today complaining of hyperglycemia and chronic gastroparesis. Patient states he has been vomiting since 1 PM. Patient is out of control. He is up and down in the bed screaming out loud stating we are not helping him he needs help yet he will not stay still to be examined or be cared for. We had to leave the room and ask him to put his behavior in control to get him. He eventually stopped acting up and labs were drawn. Patient is in the ED with the significant other who stated patient was discharged from [facility] days ago. She states they recently moved from [place] to [facility] a couple weeks ago and they do not have any primary care doctor or veteran appeals reviewer to follow-up with. Patient admits to using marijuana. Review of Systems Review of Systems Constitutional: Denies fever or chills [] Eyes: Denies change in visual acuity, redness, or eye pain [] HENT: Denies nasal congestion or sore throat [] Respiratory: Denies cough or shortness of breath [] Cardiovascular: No additional information not addressed in HPI [] GI: Denies abdominal pain, nausea, vomiting, bloody stools or diarrhea [] : Denies dysuria or hematuria [] Musculoskeletal: Denies back pain or joint pain [] Integument: Denies rash or skin lesions [] Neurologic: Denies headache, focal weakness or sensory changes [] Endocrine: Reports hyperglycemia Psych:anxious, crying out loud. All other systems were reviewed and found to be within normal limits, except as documented in this note. Current Medications Current Medications Current Medications Medications (Trade) Dose Ordered Sig/Alexander Start Time Stop Time Status Last Admin Dose Admin Famotidine (Pepcid Vial) 20 mg 1X ONCE 01/26/19 17:45 01/26/19 17:49 DC 01/26/19 17:58 20 MG Haloperidol Lactate (Haldol Inj) 5 mg 1X ONCE 01/26/19 17:45 01/26/19 17:49 DC 01/26/19 17:58 5 MG Insulin Human Regular (HumuLIN R VIAL) 8 unit 1X ONCE 01/26/19 19:00 01/26/19 19:01 DC 01/26/19 19:23 8 UNIT Ondansetron HCl (Zofran) 4 mg 1X ONCE 01/26/19 17:45 01/26/19 17:49 DC 01/26/19 17:58 4 MG Sodium Chloride 1,000 ml @ 1,000 mls/hr 1X ONCE 01/26/19 17:45 01/26/19 18:44 DC 01/26/19 17:58 1,000 MLS/HR Allergies Allergies Allergies Coded Allergies Type Severity Reaction Last Updated Verified No Known Drug Allergies 10/26/18 No Physical Exam Physical Exam Constitutional: Well developed, well nourished, no acute distress, non-toxic appearance. [] HENT: Normocephalic, atraumatic, bilateral external ears normal, oropharynx moist, no oral exudates, nose normal. [] Eyes: PERRLA, EOMI, conjunctiva normal, no discharge. [] Neck: Normal range of motion, no tenderness, supple, no stridor. [] Cardiovascular:Heart rate regular rhythm, no murmur [] Lungs & Thorax: Bilateral breath sounds clear to auscultation [] Abdomen: Old healed surgical incision noted midline abdomen. Bowel sounds normal , soft, no tenderness, no masses, no pulsatile masses. [] Skin: Warm, dry, no erythema, no rash. [] Back: No tenderness, no CVA tenderness. [] Extremities: No tenderness, no cyanosis, no clubbing, ROM intact, no edema. [] Neurologic: Alert and oriented X 3, normal motor function, normal sensory function, no focal deficits noted. [] Psychologic: Very anxious, crying out loud Current Patient Data Vital Signs Vital Signs Date Time Temp Pulse Resp B/P (MAP) Pulse Ox O2 Delivery O2 Flow Rate FiO2 01/26/19 19:52 98 141/67 (91) 99 Room Air 01/26/19 19:22 18 01/26/19 16:55 98.3 98.3 Lab Values Laboratory Tests Test 01/26/19 17:25 01/26/19 18:25 01/26/19 20:01 Urine Collection Type Void Urine Color Yellow Urine Clarity Clear Urine pH 8.5 Urine Specific [place] 1.020 Urine Protein 30 mg/dL (NEG-TRACE) Urine Glucose (UA) >=1000 mg/dL (NEG) Urine Ketones (Stick) 15 mg/dL (NEG) Urine Blood Small (NEG) Urine Nitrite Negative (NEG) Urine Bilirubin Negative (NEG) Urine Urobilinogen Dipstick 0.2 mg/dL (0.2 mg/dL) Urine Leukocyte Esterase Negative (NEG) Urine RBC 6-10 /HPF (0-2) Urine WBC Rare /HPF (0-4) Urine Squamous Epithelial Cells Occ /LPF Urine Bacteria 0 /HPF (0-FEW) Glucose (Fingerstick) 507 mg/dL (70-99) *H 160 mg/dL (70-99) H Urine Opiates Screen Neg (NEG) Urine Methadone Screen Neg (NEG) Urine Barbiturates Neg (NEG) Urine Phencyclidine Screen Neg (NEG) Urine Amphetamine/Methamphetamine Neg (NEG) Urine Benzodiazepines Screen Neg (NEG) Urine Cocaine Screen Pos (NEG) Urine Cannabinoids Screen Pos (NEG) Urine Ethyl Alcohol Neg (NEG) White Blood Count 10.0 x10^3/uL (4.0-11.0) Red Blood Count 4.08 x10^6/uL (4.30-5.70) L Hemoglobin 12.4 g/dL (13.0-17.5) L Hematocrit 36.6 % (39.0-53.0) L Mean Corpuscular Volume 90 fL (79-100) Mean Corpuscular Hemoglobin 30 pg (25-35) Mean Corpuscular Hemoglobin Concent 34 g/dL (31-37) Red Cell Distribution Width 13.8 % (11.5-14.5) Platelet Count 381 x10^3/uL (140-400) Neutrophils (%) (Auto) 87 % (31-73) H Lymphocytes (%) (Auto) 8 % (24-48) L Monocytes (%) (Auto) 4 % (0-9) Eosinophils (%) (Auto) 0 % (0-3) Basophils (%) (Auto) 1 % (0-3) Neutrophils # (Auto) 8.7 x10^3uL (1.8-7.7) H Lymphocytes # (Auto) 0.8 x10^3/uL (1.0-4.8) L Monocytes # (Auto) 0.4 x10^3/uL (0.0-1.1) Eosinophils # (Auto) 0.0 x10^3/uL (0.0-0.7) Basophils # (Auto) 0.1 x10^3/uL (0.0-0.2) Segmented Neutrophils % 94 % (35-66) H Lymphocytes % 4 % (24-48) L Monocytes % 2 % (0-10) Platelet Estimate Adequate (ADEQUATE) Sodium Level 140 mmol/L (136-145) Potassium Level 3.5 mmol/L (3.5-5.1) Chloride Level 99 mmol/L (98-107) Carbon Dioxide Level 28 mmol/L (21-32) Anion Gap 13 (6-14) Blood Urea Nitrogen 23 mg/dL (8-26) Creatinine 1.4 mg/dL (0.7-1.3) H Estimated GFR (Cockcroft-Gault) 71.1 BUN/Creatinine Ratio 16 (6-20) Glucose Level 438 mg/dL (70-99) H Calcium Level 9.6 mg/dL (8.5-10.1) Magnesium Level 2.0 mg/dL (1.8-2.4) Total Bilirubin 0.8 mg/dL (0.2-1.0) Aspartate Amino Transferase (AST) 20 U/L (15-37) Alanine Aminotransferase (ALT) 24 U/L (16-63) Alkaline Phosphatase 112 U/L (46-116) Creatine Kinase 161 U/L (39-308) Creatine Kinase MB (Mass) 2.0 ng/mL (0.0-3.6) Creatine Kinase MB Relative Index 1.2 % (0-4) Troponin I Quantitative < 0.017 ng/mL (0.000-0.055) GN-Uun-A-Type Natriuretic Peptide 24 pg/mL (0-124) Total Protein 7.5 g/dL (6.4-8.2) Albumin 3.5 g/dL (3.4-5.0) Albumin/Globulin Ratio 0.9 (1.0-1.7) L Lipase 151 U/L (73-393) Ethyl Alcohol Level < 10 mg/dL (0-10) Laboratory Tests 01/26/19 18:25 Laboratory Tests 01/26/19 18:25 EKG EKG [] Radiology/Procedures Radiology/Procedures [] Course & Med Decision Making Course & Med Decision Making Pertinent Labs and Imaging studies reviewed. (See chart for details) This is a 33-year-old male patient with history of diabetes type 1 presenting to the ED today with hyperglycemia and gastroparesis, on arrival to the ED, patient was beyond control screaming and crying out loud, not cooperating to be cared for. After major negotiations and being left alone he was able to calm down and we started giving him the care he needs. SEE HPI CBC with no acute findings, CMP with glucose of 438, creatinine 1.4, BUN is normal. Urine analysis is noted for 15 ketones. Patient was given 2 L of IV fluid, 8 units of insulin, blood glucose 163. Patient was also given famotidine, Zofran and Haldol. He completely come down. Patient was offered admission he is requesting to go home. He states he feels better and he states he left his insulin at home and was at work when his symptoms began. Prescription for Reglan as well as Zofrn provided. Doctor's list provided for follow-up as an outpatient. Dragon Disclaimer Dragon Disclaimer This electronic medical record was generated, in whole or in part, using a voice recognition dictation system. Departure Departure Impression: Primary Impression: Anxiety Additional Impressions: Diabetes mellitus with hyperglycemia Gastroparesis Marijuana use Disposition: HOME, SELF-CARE Condition: STABLE Referrals: NO PCP (PCP) follow up with your doctor next week Patient Instructions: Gastroparesis, Gestational Diabetes Mellitus Additional Instructions: You were evaluated in the emergency room for diabetes with gastroparesis. Please continue using her insulin as prescribed previously. Establish care with one of the primary care doctor is provided. Try and follow-up in the course of next week. Push fluids. Scripts Metoclopramide Hcl (REGLAN) 10 Mg Tablet 1 TAB PO TID, #30 TAB Prov: CELINA LINDO APRN 01/26/19 Ondansetron (ONDANSETRON ODT) 4 Mg Tab.rapdis 1 TAB PO PRN Q6-8HRS, #16 TAB Prov: CELINA LINDO APRN 01/26/19 Problem Qualifiers Additional Impressions: Diabetes mellitus with hyperglycemia Diabetes mellitus type: type 1 Qualified Codes: E10.65 - Type 1 diabetes mellitus with hyperglycemia CELINA LINDO APRN Jan 26, 2019 20:37
[2019-01-26 20:52] VITALS: BP 131/69
[2019-01-26] MEDS ORDERED: ONDA4TAB12 PO (20:52)
[2019-01-26] MEDS ORDERED: METO10TA81 PO (20:52)
--- NOTE | 2019-01-27 06:49 | EKG ---
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
== END 2019-01-26 21:00 | disposition home or self-care (01) ==
LOC: ER 16:48
DX: E10.65 Type 1 diabetes mellitus with hyperglycemia (principal); F41.9 Anxiety disorder, unspecified; E10.43 Type 1 diabetes mellitus with diabetic autonomic (poly)neuropathy; K31.84 Gastroparesis; J45.909 Unspecified asthma, uncomplicated; I10 Essential (primary) hypertension; F12.20 Cannabis dependence, uncomplicated
CPT/HCPCS: 36415; 80053; 80307; 81001; 82553; 82962; 83690; 83735; 83880; 84484; 85007; 85025; 93005; 96361; 96374; 96375; 99284; G0480; J1630; J1815; J2405; J3490; J7030

== ENCOUNTER 2019-04-05 01:53 | Emergency (ER) | payer SELFPAY ==
[~2019-04-05] VITALS: Ht 167.6 cm; Wt 81.6 kg
[~2019-04-05 01:53] MED LIST changes: +METO10TA81 PO; +ONDA4TAB12 PO
[2019-04-05 02:03] VITALS: BP 160/105
[2019-04-05] MEDS ORDERED: AMOX1TAB61 PO (02:42)
[2019-04-05] MEDS ORDERED: HYDR-3164 PO (02:42)
[2019-04-05] MEDS ORDERED: KETOROLAC 30 MG/ML VIAL. IM ONE (02:45)
--- NOTE | 2019-04-05 02:49 | PHYS DOC ---
Past Medical History Past Medical History: Anxiety, Asthma, Diabetes-Type I, Hypertension, Other Additional Past Medical Histor: gastroparesis Past Surgical History: No Surgical History Alcohol Use: Occasionally Drug Use: Marijuana Adult General Chief Complaint Chief Complaint: DENTAL PROBLEM HPI HPI Patient is a 33 year old M who presents for tooth pain. It has been going on for the last week but has worsened in the last day. The pain is on the right side with radiation into his upper face and jaw. He does not have a regular dentist. He denies any fever or chills. Review of Systems Review of Systems Current Medications Current Medications Current Medications Medications (Trade) Dose Ordered Sig/Alexandre Start Time Stop Time Status Last Admin Dose Admin Ketorolac Tromethamine (Toradol 30mg Vial) 30 mg 1X ONCE 04/05/19 02:45 04/05/19 02:46 DC Allergies Allergies Allergies Coded Allergies Type Severity Reaction Last Updated Verified lisinopril Allergy Severe Angioedema 04/05/19 Yes Physical Exam Physical Exam Constitutional: Well developed, well nourished, no acute distress, non-toxic mikhail earance. [] HENT: Normocephalic, atraumatic, bilateral external ears normal, oropharynx moist, diffusely poor dentition, nose normal. [] no facial swelling or abscess Eyes: PERRLA, EOMI, conjunctiva normal, no discharge. [] Neck: Normal range of motion, no tenderness, supple, no stridor. [] Skin: Warm, dry, no erythema, no rash, no oral abscesses noted. [] Back: No tenderness, no CVA tenderness. [] Extremities: No tenderness, no cyanosis, no clubbing, ROM intact, no edema. [] Neurologic: Alert and oriented X 3, normal motor function, normal sensory function, no focal deficits noted. [] Psychologic: Affect normal, judgement normal, mood normal. [] Current Patient Data Vital Signs Vital Signs Date Time Temp Pulse Resp B/P (MAP) Pulse Ox O2 Delivery O2 Flow Rate FiO2 04/05/19 02:03 97.8 101 17 160/105 (123) 100 Room Air 97.8 EKG EKG [] Radiology/Procedures Radiology/Procedures [] Course & Med Decision Making Course & Med Decision Making Pertinent Labs and Imaging studies reviewed. (See chart for details) []gave symptomatic tx, abx and f/u with dentist tasia. given clinic info Sarah Disclaimer Dragon Disclaimer This electronic medical record was generated, in whole or in part, using a voice recognition dictation system. Departure Departure Impression: Primary Impression: Toothache Disposition: HOME, SELF-CARE Condition: STABLE Referrals: NO PCP (PCP) Scripts Hydrocodone/Apap 5-325 (NORCO 5-325 TABLET) 1 Each Tablet 1-2 EACH PO PRN Q6HRS PRN for PAIN, #15 as needed for pain Prov: JOSE ANGEL BRADY MD 04/05/19 Amoxicillin/Potassium Clav (AUGMENTIN 875-125 TABLET) 1 Each Tablet 1 TAB PO BID, #20 TAB Prov: JOSE ANGEL BRADY MD 04/05/19 JOSE ANGEL BRADY MD April 05, 2019 02:49
== END 2019-04-05 03:10 | disposition home or self-care (01) ==
LOC: ER 01:53
DX: K08.89 Other specified disorders of teeth and supporting structures (principal); F41.9 Anxiety disorder, unspecified; J45.909 Unspecified asthma, uncomplicated; E10.9 Type 1 diabetes mellitus without complications; I10 Essential (primary) hypertension; Z88.8 Allergy status to other drugs, medicaments and biological substances
CPT/HCPCS: 96372; 99283; J1885

== ENCOUNTER 2021-05-18 10:58 | Emergency (ER) | payer SELFPAY ==
[~2021-05-18] VITALS: Ht 167.6 cm; Wt 86.6 kg
[~2021-05-18 10:58] MED LIST changes: +AMOX1TAB61 PO; +HYDR-3164 PO
[2021-05-18] MEDS ORDERED: ALPRAZolam 0.5 MG TABLET PO ONE (11:30)
[2021-05-18] MEDS ORDERED: ASPIRIN 325 MG TABLET PO ONE (11:30)
[2021-05-18] MEDS ORDERED: cloNIDine HCL 0.1 MG TABLET PO ONE (11:30)
--- NOTE | 2021-05-18 11:34 | PHYS DOC ---
Past Medical History Past Medical History: Anxiety, Asthma, Diabetes-Type I, Hypertension, Other Additional Past Medical Histor: gastroparesis (CELINA LINDO DYE REEL OPERATOR HELPER) Past Surgical History: No Surgical History (CELINA LINDO DYE REEL OPERATOR HELPER) Smoking Status: Current Some Day Smoker Alcohol Use: Occasionally Drug Use: Marijuana (CELINA LINDO DYE REEL OPERATOR HELPER) General Adult EDM: Chief Complaint: SHORTNESS OF BREATH HPI: HPI: Patient is a 35 year old male with history of diabetes type 1, hypertension, anxiety, who presents to the ED today complaining of shortness of breath and 7 out of 10 generalized chest pain, symptoms began at 2 AM this morning. Patient states he was awake when symptoms began. He states since then he has not been able to sleep. Patient denies any fever, he states he has a cough but is not a new cough. Reports slight nasal congestion. Denies anything specifically exacerbating or relieving his chest pain. Describes the pain as sharp. (CELINA LINDO DYE REEL OPERATOR HELPER) Review of Systems: Review of Systems: Constitutional: Denies fever or chills. [] Eyes: Denies change in visual acuity. [] HENT: Denies nasal congestion or sore throat. [] Respiratory: Reports cough and shortness of breath. [] Cardiovascular: Reports chest pain GI: Denies abdominal pain, nausea, vomiting, bloody stools or diarrhea. [] : Denies dysuria. [] Musculoskeletal: Denies back pain or joint pain. [] Integument: Denies rash. [] Neurologic: Denies headache, focal weakness or sensory changes. [] Psychiatric: Reports anxiety (CELINA LINDO DYE REEL OPERATOR HELPER) Heart Score: C/O Chest Pain: Yes HEART Score for Chest Pain: HEART Score for Chest Pain Response (Comments) Value History Slighlty/Non-Suspicious 0 ECG Normal 0 Age < 45 0 Risk Factors 1 or 2 Risk Factors 1 Troponin < Normal Limit 0 Total 1 Risk Factors: Risk Factors: DM, Current or recent (<one month) smoker, HTN, HLP, family history of CAD, obesity. Risk Scores: Score 0 - 3: 2.5% MACE over next 6 weeks - Discharge Home Score 4 - 6: 20.3% MACE over next 6 weeks - Admit for Clinical Observation Score 7 - 10: 72.7% MACE over next 6 weeks - Early Invasive Strategies (CELINA LINDO ) Current Medications: Current Medications Medications (Trade) Dose Ordered Sig/Alexander Start Time Stop Time Status Last Admin Dose Admin Alprazolam (Xanax) 0.5 mg 1X ONCE 05/18/21 11:30 05/18/21 11:31 UNV Aspirin (Antonio Aspirin) 325 mg 1X ONCE 05/18/21 11:30 05/18/21 11:31 UNV Clonidine HCl (Catapres) 0.1 mg 1X ONCE 05/18/21 11:30 05/18/21 11:31 UNV (CELINA LINDO DYE REEL OPERATOR HELPER) Allergies: Allergies: Allergies Coded Allergies Type Severity Reaction Last Updated Verified lisinopril Allergy Severe Angioedema 04/05/19 Yes (CELINA LINDO DYE REEL OPERATOR HELPER) Physical Exam: PE: Constitutional: Well developed, well nourished, no acute distress, non-toxic appearance. [] HENT: Normocephalic, atraumatic, bilateral external ears normal, oropharynx moist, no oral exudates, nose normal. [] Eyes: PERRLA, EOMI, conjunctiva normal, no discharge. [] Neck: Normal range of motion, no tenderness, supple, no stridor. [] Cardiovascular:Heart rate regular rhythm, no murmur [] Lungs & Thorax: Bilateral breath sounds clear to auscultation [] Abdomen: Bowel sounds normal, soft, no tenderness, no masses, no pulsatile masses. [] Skin: Warm, dry, no erythema, no rash. [] Back: No tenderness, no CVA tenderness. [] Extremities: No tenderness, no cyanosis, no clubbing, ROM intact, no edema. [] Neurologic: Alert and oriented X 3, normal motor function, normal sensory function, no focal deficits noted. [] Psychologic: Flat affect, very anxious, restless, pacing around (CELINA LINDO DYE REEL OPERATOR HELPER) Current Patient Data: Vital Signs: Vital Signs Date Time Temp Pulse Resp B/P (MAP) Pulse Ox O2 Delivery O2 Flow Rate FiO2 05/18/21 11:01 97.8 100 22 140/103 (115) 100 Room Air 97.8 (CELINA LINDO DYE REEL OPERATOR HELPER) EKG: EK interpreted by Dr. Cervantes sinus rhythm heart rate 94 no STEMI [] (CELINA LINDO DYE REEL OPERATOR HELPER) Radiology/Procedures: Radiology/Procedures: []PROCEDURE: CHEST PA & LATERAL XR CHEST 2V History: Reason: soa Comparison: None. Findings: No consolidation or pleural effusion. Normal heart size. No pneumothorax. Impression: 1. No acute cardiopulmonary process. Electronically signed by: Gian Redmond DO (05/18/2021 12:26 PM) [facility] DICTATED and SIGNED BY: GIAN REDMOND DO DATE: 05/18/21 [id number] 0 (CELINA LINDO DYE REEL OPERATOR HELPER) Course & Med Decision Making: Course & Med Decision Making Pertinent Labs and Imaging studies reviewed. (See chart for details) This is a 38-year-old male patient well-known to this ED presenting today complaining of shortness of breath, chest pain, slight cough, symptoms began this morning. Patient has history of anxiety and is currently restless. He refused to have an IV done. I talked to patient. He calmed down. He eventually allowed the RN to draw labs. His vitals are stable with O2 sats of 100% on room air. Chest x-ray is negative for any acute findings, CBC with no acute finding noted to be anemic, this is chronic. CMP with glucose of 68 patient was given orange juice. Results communicated to patient. He has been given Xanax, he is very calm. He states he feels better and would like to go home. He was discharged home. Follow-up with his own PCP. (CELINA LINDO DYE REEL OPERATOR HELPER) Course & Med Decision Making I oversaw on the above date of service of this patient. This patient was evaluated, examined, treated, and dispositioned from the emergency department by the mid-level practitioner. Although I was working at the time and available for consultation, no assistance was requested and I did not see or immediately direct the care of this patient. I reviewed note and agree to findings, plan of care, and disposition as stated. Electronically signed, Arleen Cervantes DO (ARLEEN CERVANTES DO) Sarah Disclaimer: Sarah Disclaimer: This electronic medical record was generated, in whole or in part, using a voice recognition dictation system. (CELINA LINDO DYE REEL OPERATOR HELPER) Departure Departure Impression: Primary Impression: Shortness of breath Additional Impressions: Anxiety Chest pain Qualified Codes: R07.9 - Chest pain, unspecified Disposition: HOME / SELF CARE / HOMELESS Condition: STABLE Referrals: NO PCP (PCP) Follow-up with your doctor in the course of this week HUNTER DIALLO MD follow up in the course of this week Patient Instructions: Anxiety and Panic Attacks, Chest Pain (Nonspecific)- Brief, Shortness of Breath, [id number] Additional Instructions: You were evaluated in the emergency room, your work-up was negative for any acute findings. Please follow-up with your primary care doctor and the provided medication administration professional in the course of this week. Come back to the ED at any point symptoms worsen. Consider following up with [facility] for anxiety. CELINA LINDO APRN May 18, 2021 11:34 ARLEEN CERVANTES DO May 19, 2021 07:15
[2021-05-18 12:02] LABS: BARBITURATES NEG (NEG); BENZODIAZEPINES NEG (NEG); CANNABINOIDS POS (NEG); COCAINE NEG (NEG); METHADONE NEG (NEG); OPIATES NEG (NEG); PHENCYCLIDINE NEG (NEG)
[2021-05-18 12:07] LABS: AMPHETAMINE/METHAMPHETAMINE NEG (NEG)
[2021-05-18 12:15] LABS: CALCIUM 8.8 mg/dL (8.5-10.1); CREATININE 1.3 mg/dL (0.7-1.3); GFR 76.5; POTASSIUM 3.8 mmol/L (3.5-5.1)
[2021-05-18 12:19] LABS: BASO # 0.1 x10^3/uL (0.0-0.2); BASO % 1 % (0-3); EOS # 0.8 x10^3/uL (0.0-0.7); EOS % 11 % (0-3); HEMATOCRIT 35.6 % (39.0-53.0); HEMOGLOBIN 12.1 g/dL (13.0-17.5); LYMPH # 1.9 x10^3/uL (1.0-4.8); LYMPH % 25 % (24-48); MEAN CORPUSCULAR HEMOGLOBIN 30 pg (25-35); MEAN CORPUSCULAR HGB CONC 34 g/dL (31-37); MEAN CORPUSCULAR VOLUME 87 fL (79-100); MONO # 0.6 x10^3/uL (0.0-1.1); MONO % 8 % (0-9); NEUT # 4.2 x10^3/uL (1.8-7.7); NEUT % 55 % (31-73); PLATELET COUNT 428 x10^3/uL (140-400); RED BLOOD COUNT 4.08 x10^6/uL (4.30-5.70); RED CELL DISTRIBUTION WIDTH 14.9 % (11.5-14.5); WHITE BLOOD COUNT 7.6 x10^3/uL (4.0-11.0)
[2021-05-18 12:21] LABS: ALBUMIN 3.4 g/dL (3.4-5.0); ALBUMIN/GLOBULIN RATIO 0.9 (1.0-1.7); TOTAL BILIRUBIN 0.5 mg/dL (0.2-1.0); TOTAL PROTEIN 7.4 g/dL (6.4-8.2)
--- NOTE | 2021-05-18 12:28 | RAD ---
XR CHEST 2V History: Reason: soa Comparison: None. Findings: No consolidation or pleural effusion. Normal heart size. No pneumothorax. Impression: 1. No acute cardiopulmonary process. Electronically signed by: Gian Redmond DO (05/18/2021 12:26 PM) [facility]
--- NOTE | 2021-05-18 13:41 | EKG ---
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
[2021-05-18 14:04] VITALS: BP 160/88
== END 2021-05-18 14:25 | disposition home or self-care (01) ==
LOC: ER 10:58
DX: R06.02 Shortness of breath (principal); R07.89 Other chest pain; F41.9 Anxiety disorder, unspecified; J45.909 Unspecified asthma, uncomplicated; I10 Essential (primary) hypertension; E10.43 Type 1 diabetes mellitus with diabetic autonomic (poly)neuropathy; K31.84 Gastroparesis; F17.200 Nicotine dependence, unspecified, uncomplicated; Z88.8 Allergy status to other drugs, medicaments and biological substances
CPT/HCPCS: 36415; 71046; 80053; 80307; 83735; 83880; 84484; 85025; 93005; 99285-25